=== PATIENT | male | born 1945 | race Caucasian/White ===

== ENCOUNTER 2022-05-08 11:23 | Outpatient (CLI) | payer MEDICARE, SELFPAY ==
[2022-05-08 11:57] LABS: Hematocrit 40.4 % (37.0-46.0); Mean Corpuscular HGB Conc 32.2 g/dL (32.0-36.0); Mean Corpuscular Hemoglobin 30.4 pg (27.0-31.0); Mean Corpuscular Volume 94.4 fL (78.0-102.0); Mean Platelet Volume 12.3 fl (8.7-11.0); Platelet Count Result 147 K/mm3 (150-420); Red Blood Count 4.28 M/mm3 (4.70-6.10); Red Cell Distribution Width 14.1 % (11.6-14.4)
[2022-05-08 12:20] LABS: White Blood Count 37.1 K/mm3 (4.8-10.8)
[2022-05-08 12:45] LABS: Alanine Aminotransferase 42 U/L (16-63); Albumin Level 4.2 g/dL (3.4-5.0); Alkaline Phosphatase 74 U/L (46-116); Anion Gap 6 mmol/L (8-16); Aspartate Amino Transferase 28 U/L (15-37); Bilirubin,Total 1.2 mg/dL (0.00-1.00); Blood Urea Nitrogen 23 mg/dL (7-18); Calcium 8.6 mg/dL (8.5-10.1); Carbon Dioxide 30 mmol/L (21-32); Chloride 106 mmol/L (98-108); Estimated Glomerular Filt Rate 58; Glucose 78 mg/dL (70-99); Iron 128 ug/dL (65-175); Osmolality Calculated 296 mOsm/kg (285-295); Percent Iron Saturation 34 % (12-57); Potassium 4.5 mmol/L (3.5-5.1); Sodium 142 mmol/L (136-145); Total Protein 7.4 g/dL (6.4-8.2)
[2022-05-08 12:46] LABS: Band Neutrophils Percent 0 % (0-6); Eosinophils Absolute Manual 0.37 K/mm3 (0.02-0.5); Eosinophils Percent Manual 1 % (1-6); Lymphocytes Absolute Manual 29.68 K/mm3 (1.1-4.5); Lymphocytes Percent Manual 80 % (18-44); Monocytes Absolute Manual 0.37 K/mm3 (0.1-0.90); Monocytes Percent Manual 1 % (3-9); Neutrophils Absolute Manual 6.67 K/mm3 (1.3-6.7); Neutrophils Percent Manual 18 % (46-73); Platelet Estimate Adequate (Adequate); Total Cells Counted 100
[2022-05-08 12:49] LABS: Schistocytes None Seen (NORMAL)
[2022-05-08 16:03] LABS: Ferritin 316 ng/mL (26-388)
== END 2022-05-08 11:24 | disposition home or self-care (01) ==
LOC: CHSLAB 11:40
PROVIDERS: PCP Family Medicine; Visit Provider Internal Medicine Hematology & Oncology
DX: D50.9 Iron deficiency anemia, unspecified (principal)
CPT/HCPCS: 36415; 80053; 82728; 83540; 83550; 85025

== ENCOUNTER 2022-06-18 02:12 | Day surgery (SDC) | payer MEDICARE, SELFPAY ==
[2022-06-05 14:44] VITALS: BMI 41.3
--- NOTE | 2022-06-18 12:42 | WPDANESEPPF ---
Anes - Initial Pre Proc Eval Procedure: Operation Date: 06/18/22 14:30 Proposed Procedures p Esophagogastroduodenoscopy EGD - Luis Cox MD Date/Time: 06/18/22 12:42 Surgeon: Luis Cox MD Pre Op Diagnosis: Barretts' esophagus Patient Data Age: 77 Gender: M Height: 1.75 m Weight: 127 kg Allergies Allergy/AdvReac Type Severity Reaction Status Date / Time No Known Allergies Allergy Verified 06/18/22 13:09 Home Medications Medication Instructions Recorded Confirmed Type aspirin 81 mg tablet,delayed 81 mg PO DAILY 05/25/22 06/05/22 History release lovastatin 10 mg tablet 10 mg PO QPM 05/25/22 06/05/22 History multivitamin 1 tablet PO DAILY 05/25/22 06/05/22 History formoterol fumarate 20 mcg/2 mL 2 ml inhalation BID 06/05/22 06/05/22 History solution for nebulization Patient hx anesthesia problems: none Family hx anesthesia problems: none Results Review: All pre-operative results and documents have been reviewed as part of the pre-operative evaluation. [facility] Past Medical History Medical History Asthma Jarvis's esophagus CLL (chronic lymphocytic leukemia) History of brain concussion Hx of chronic obstructive lung disease Hx of gastroesophageal reflux (GERD) Hyperlipidemia Hypothyroidism Iron deficiency anemia Morbid obesity with BMI of 40.0-44.9, adult SHOLA (obstructive sleep apnea) Family History Family History Father No problems noted. Mother No problems noted. Sibling Brain tumor Cirrhosis of liver Social History Social History Smoking status: Never smoker Substance use: never Substance use type: does not use Living arrangements: with family Spiritual care concerns: No Anes - Eval Final PreProcedure Day of Procedure 06/18/22 12:42 Patient weight: obese Heart: regular rate and rhythm Lungs: clear to auscultation and normal air movement Airway: Mallampati scale class II Neurological: alert and oriented Last oral intake: >/= 8 hours ASA classification: III Emergent: no Anesthetic plan: proceed Anesthesia type and monitoring: general GIVS Results Review: All pre-operative results and documents have been reviewed as part of the pre-operative evaluation. Informed Consent: The patient's anesthetic plan and its attendant risks and benefits were discussed with the patient/family/POA. Questions were solicited and answers provided to the satisfaction of the patient/family/POA.
--- NOTE | 2022-06-18 13:07 | P.HP_ITS ---
History of Present Illness History of Present Illness Consent: Risks, benefits, and alternatives have been discussed and questions answered. Patient agrees to proceed with procedure. Chief complaint: Barretts' esophagus Narrative: Ashwin Zhu is a 77 year old male who ?has been told that he has Barretts esophagus.? He was told of this about 3 years ago when he had EGD.? Has been taking omeprazole.? He denies calming significant heartburn a denies any dys phagia.? Although he thought that that was the beginning of his Barretts esophagus, I was able to locate a pathology report from endoscopy done in 2009 that showed that he had Barretts esophagus at 5 cm, 10 cm, and the GE junction.? He does not recall that diagnosis.? He has been having a problem with coughing when he eats and this has been going on for couple of years he had what he describes that sounds like a modified barium swallow last year and he states that he had therapy with a speech therapist several times a week for about 6 weeks to help with that.? Review of Systems Review of Systems: All systems reviewed & are unremarkable except as noted in HPI and below PMFSH Past Medical History Medical History Asthma Jarvis's esophagus CLL (chronic lymphocytic leukemia) History of brain concussion Hx of chronic obstructive lung disease Hx of gastroesophageal reflux (GERD) Hyperlipidemia Hypothyroidism Iron deficiency anemia Morbid obesity with BMI of 40.0-44.9, adult SHOLA (obstructive sleep apnea) Family History Family History Father No problems noted. Mother No problems noted. Sibling Brain tumor Cirrhosis of liver Social History Social History Smoking status: Never smoker Substance use: never Substance use type: does not use Living arrangements: with family Spiritual care concerns: No Meds Home Medications and Allergies Home Medications Medication Instructions Recorded Confirmed Type aspirin 81 mg tablet,delayed 81 mg PO DAILY 05/25/22 06/05/22 History release lovastatin 10 mg tablet 10 mg PO QPM 05/25/22 06/05/22 History multivitamin 1 tablet PO DAILY 05/25/22 06/05/22 History formoterol fumarate 20 mcg/2 mL 2 ml inhalation BID 06/05/22 06/05/22 History solution for nebulization Allergies Allergy/AdvReac Type Severity Reaction Status Date / Time No Known Allergies Allergy Unverified 06/02/22 11:28 Exam Const: General: alert Orientation/consciousness: patient oriented x3 Resp: Auscultation: clear to auscultation bilaterally Cardio: Rhythm: regular rhythm GI: GI Palp: Yes Soft to palpation and No Tenderness to palpation present (GI) Neuro: General: patient oriented x3 Assessment and Plan Assessment and plan (1) Jarvis's esophagus: Code(s): K22.70 - Jarvis's esophagus without dysplasia Status: Acute Assessment and Plan: EGD with possible biopsy or dilatation or cautery.
[2022-06-18 13:10] VITALS: BP 164/105; PULSE 83; RESP 22; TEMP 37; O2SAT 99
[2022-06-18] MEDS: LACTATED RINGERS 1,000 ML 150 ML IV CONT (13:16)
[2022-06-18] MEDS: BENZOCAINE (*SP) 60 ML SPRAY CAN (HURRICAINE) 1 SPRAY MUCOUS MEM (13:40)
[2022-06-18 14:02] VITALS: BP 123/78; PULSE 79; RESP 18; O2SAT 98
[2022-06-18 14:12] VITALS: BP 127/84; PULSE 84; RESP 20; O2SAT 96
[2022-06-18 14:22] VITALS: BP 150/97; PULSE 72; RESP 22; O2SAT 95
== END 2022-06-18 14:37 | disposition home or self-care (01) ==
PROVIDERS: PCP Family Medicine; Visit Provider Internal Medicine Gastroenterology
PROC: 0DJ08ZZ Inspection of Upper Intestinal Tract, Via Natural or Artificial Opening Endoscopic (ICD-10-PCS; CPT 43235; principal; 2022-06-18 14:30)
DX: C16.0 Malignant neoplasm of cardia (principal); K22.70 Barrett's esophagus without dysplasia; K44.9 Diaphragmatic hernia without obstruction or gangrene; C91.10 Chronic lymphocytic leukemia of B-cell type not having achieved remission; E78.5 Hyperlipidemia, unspecified; E03.9 Hypothyroidism, unspecified; D50.9 Iron deficiency anemia, unspecified; G47.33 Obstructive sleep apnea (adult) (pediatric); J44.9 Chronic obstructive pulmonary disease, unspecified; E66.9 Obesity, unspecified; Z68.38 Body mass index [BMI] 38.0-38.9, adult; Z79.51 Long term (current) use of inhaled steroids; Z79.82 Long term (current) use of aspirin
CPT/HCPCS: 43239; 88305; J2704; J7120